=== PATIENT | female | born 1995 | race Caucasian/White ===

== ENCOUNTER 2022-05-01 10:38 | Observation (INO) | payer MEDICAID ==
[~2022-05-01] VITALS: Ht 165.1 cm; Wt 73.5 kg
[2022-05-01] MEDS ORDERED: PNV91TAB8 PO (11:20)
[2022-05-01 12:37] LABS: BASOPHILS % (AUTO) 0.2 % (0.0-2.0); EOSINOPHILS % (AUTO) 0.5 % (0.0-4.0); HEMATOCRIT 35.3 % (36-48); HEMOGLOBIN 12.1 g/dL (12.0-16.0); LYMPHOCYTES # (AUTO) 2.2 K/uL (2.5-16.5); LYMPHOCYTES % (AUTO) 23.3 % (20.5-51.1); MEAN CORPUSCULAR HEMOGLOBIN 30 pg (27-31); MEAN CORPUSCULAR HGB CONC 34 g/dL (33-37); MONOCYTES # (AUTO) 0.6 K/uL (0.8-1.0); MONOCYTES % (AUTO) 6.8 % (1.7-9.3); NEUTROPHILS # (AUTO) 6.5 K/uL (1.8-7.7); NEUTROPHILS % (AUTO) 69.2 % (42.2-75.2); PLATELET COUNT (AUTO) 205 K/uL (140-450); RED BLOOD CELL COUNT(AUTO) 4.01 MIL/uL (4.20-5.40); RED CELL DISTRIBUTION WIDTH 13.4 % (11.6-13.7); WHITE BLOOD COUNT (AUTO) 9.4 K/uL (4.8-10.8)
[2022-05-01 12:58] LABS: ALBUMIN 2.9 g/dL (3.4-5.0); ANION GAP 11.2 (8-16); CARBON DIOXIDE 23.6 mmol/L (21-32); CREATININE 0.5 mg/dL (0.6-1.3); POTASSIUM 3.8 mmol/L (3.5-5.1); TOTAL BILIRUBIN 0.6 mg/dL (0.0-1.0)
[2022-05-01 13:26] LABS: URINE TOTAL PROTEIN 0.1 mg/dL (0-12)
[2022-05-01 13:32] LABS: APPEARANCE,URINE CLEAR (CLEAR); BILIRUBIN,URINE NEGATIVE (NEGATIVE); BLOOD, URINE NEGATIVE (NEGATIVE); COLOR,URINE YELLOW (YELLOW); LEUKOCYTE ESTERASE ,URINE NEGATIVE (NEGATIVE); NITRITE, URINE NEGATIVE (NEGATIVE); PH,URINE 7.5 (5.0-9.0); UGLUCOSE NEGATIVE (NEGATIVE)
[2022-05-01 13:39] LABS: PROTHROMBIN TIME 9.3 secs (10.8-13.4)
--- NOTE | 2022-05-01 16:55 | NUR ---
PATIENT HAS BEEN SCREENED AND CATEGORIZED LOW NUTRITION RISK. PATIENT WILL BE SEEN WITHIN 7 DAYS OF ADMISSION. 05/08/22 REVIEWED BY HUMZA NELSON [address]
== END 2022-05-01 19:00 | disposition home or self-care (01) ==
LOC: MLD 10:38
PROVIDERS: ADMIT Obstetrics & Gynecology; ATTEND Obstetrics & Gynecology
DX: O13.3 Gestational [pregnancy-induced] hypertension without significant proteinuria, third trimester (principal); Z20.822 Contact with and (suspected) exposure to COVID-19; O99.013 Anemia complicating pregnancy, third trimester; D64.9 Anemia, unspecified; Z3A.31 31 weeks gestation of pregnancy
CPT/HCPCS: 36415; 80053; 81003; 82570; 83605; 84550; 85025; 85384; 85610; 85730; 87426; 93005; C8929; G0378

== ENCOUNTER 2022-06-02 11:52 | Inpatient (IN) | payer MEDICAID ==
[~2022-06-02] VITALS: Ht 165.1 cm; Wt 75.3 kg
[~2022-06-02 11:52] MED LIST: PNV91TAB8 PO
[2022-06-02 15:34] VITALS: BP 103/65
[2022-06-02] MEDS ORDERED: OXYTOCIN 10 UNITS/ML VIAL IM SCH (19:20)
[2022-06-02] MEDS ORDERED: METHYLERGONOVINE 0.2 MG/ML AMP IM PRN (19:20)
[2022-06-02] MEDS ORDERED: CARBOPROST 250 MCG/ML AMP IM PRN (19:20)
[2022-06-02] MEDS ORDERED: BETAMETH ACET/BETAMETH NA PH 30 MG/5 ML VIAL IM SCH (19:30)
[2022-06-02 19:53] LABS: BASOPHILS % (AUTO) 0.3 % (0.0-2.0); EOSINOPHILS % (AUTO) 0.3 % (0.0-4.0); HEMATOCRIT 37.3 % (36-48); HEMOGLOBIN 12.6 g/dL (12.0-16.0); LYMPHOCYTES # (AUTO) 3.3 K/uL (2.5-16.5); LYMPHOCYTES % (AUTO) 25.2 % (20.5-51.1); MEAN CORPUSCULAR HEMOGLOBIN 30 pg (27-31); MEAN CORPUSCULAR HGB CONC 34 g/dL (33-37); MEAN CORPUSCULAR VOLUME 87.7 fL (80-94); MONOCYTES % (AUTO) 7.9 % (1.7-9.3); NEUTROPHILS # (AUTO) 8.6 K/uL (1.8-7.7); NEUTROPHILS % (AUTO) 66.3 % (42.2-75.2); PLATELET COUNT (AUTO) 206 K/uL (140-450); RED BLOOD CELL COUNT(AUTO) 4.25 MIL/uL (4.20-5.40); RED CELL DISTRIBUTION WIDTH 13.6 % (11.6-13.7)
[2022-06-02 20:09] LABS: PROTHROMBIN TIME 9.5 secs (10.8-13.4)
[2022-06-02 20:14] LABS: ALBUMIN 3.4 g/dL (3.4-5.0); CARBON DIOXIDE 23.8 mmol/L (21-32); CREATININE 0.6 mg/dL (0.6-1.3); POTASSIUM 3.8 mmol/L (3.5-5.1); TOTAL BILIRUBIN 0.8 mg/dL (0.0-1.0)
[2022-06-02 20:29] LABS: APPEARANCE,URINE CLEAR (CLEAR); BILIRUBIN,URINE NEGATIVE (NEGATIVE); BLOOD, URINE NEGATIVE (NEGATIVE); COLOR,URINE YELLOW (YELLOW); LEUKOCYTE ESTERASE ,URINE NEGATIVE (NEGATIVE); NITRITE, URINE NEGATIVE (NEGATIVE); PH,URINE 6.5 (5.0-9.0); UGLUCOSE NEGATIVE (NEGATIVE)
[2022-06-02] MEDS ORDERED: OXYTOCIN 20 UNITS in LACTATED RINGERS 1,000 ML IV SCH (20:30)
[2022-06-02] MEDS ORDERED: ONDANSETRON 4 MG/2 ML VIAL IVP PRN (20:30)
[2022-06-02] MEDS ORDERED: MORPHINE SULFATE 5 MG/ML VIAL IVP PRN (20:30)
[2022-06-03] MEDS: LACTATED RINGERS 1,000 ML IV SCH ×4 (01:46→20:58)
[2022-06-03] MEDS: MISOPROSTOL 25 MCG TAB VG SCH ×3 (03:35→19:50)
[2022-06-03] MEDS ORDERED: BETAMETH ACET/BETAMETH NA PH 30 MG/5 ML VIAL IM ONE (07:53)
[2022-06-03] MEDS ORDERED: BETAMETH ACET/BETAMETH NA PH 30 MG/5 ML VIAL IM SCH ×2 (07:55→19:50)
--- NOTE | 2022-06-03 09:53 | NUR ---
PATIENT HAS BEEN SCREENED AND CATEGORIZED LOW NUTRITION RISK. PATIENT WILL BE SEEN WITHIN 7 DAYS OF ADMISSION. 06/09/22 REVIEWED BY HUMZA NELSON [address]
[2022-06-04] MEDS: LACTATED RINGERS 1,000 ML IV SCH ×3 (02:27→19:27)
[2022-06-04] MEDS: MISOPROSTOL 25 MCG TAB VG SCH ×3 (08:25→23:40)
[2022-06-04 20:50] VITALS: BP 140/85
[2022-06-05] MEDS: LACTATED RINGERS 1,000 ML IV SCH ×2 (03:20→11:19)
[2022-06-05] MEDS ORDERED: OXYTOCIN 20 UNITS/LR PREMIX 1,000 ML IV ONE (06:56)
[2022-06-05] MEDS ORDERED: AMPICILLIN 2,000 MG in NACL 0.9% 100 ML IV SCH (11:00)
[2022-06-05] MEDS ORDERED: AMPICILLIN 2,000 MG VIAL ONE (11:06)
[2022-06-05] MEDS ORDERED: LIDOCAINE 1% 500 MG/50 ML VIAL ONE (13:34)
[2022-06-05] MEDS ORDERED: LIDOCAINE 1% 500 MG/ 50 ML VIAL INJ SCH (14:00)
[2022-06-05] MEDS ORDERED: AMPICILLIN 1,000 MG in NACL 0.9% 50 ML IV SCH (15:00)
[2022-06-05] MEDS ORDERED: MEASLES, MUMPS, AND RUBELLA 1 VIAL SQVAC ONE (18:40)
[2022-06-05] MEDS ORDERED: OXYTOCIN 10 UNITS/ML VIAL IM PRN (18:40)
[2022-06-05] MEDS ORDERED: METHYLERGONOVINE 0.2 MG/ML AMP IM PRN (18:40)
[2022-06-05] MEDS ORDERED: IBUPROFEN 800 MG TAB PO PRN (18:40)
[2022-06-05] MEDS ORDERED: METHYLERGONOVINE 0.2 MG TAB PO PRN (18:40)
[2022-06-05] MEDS ORDERED: BENZOCAINE/MENTHOL 20%-0.5% 60 GM CAN TP PRN (18:40)
[2022-06-05] MEDS ORDERED: MEASLES, MUMPS, AND RUBELLA 1 VIAL SQVAC PRN (18:50)
[2022-06-06 05:51] LABS: HEMATOCRIT 32.8 % (36-48); HEMOGLOBIN 11.3 g/dL (12.0-16.0)
== END 2022-06-07 21:54 | disposition home or self-care (01) | DRG 560 ==
LOC: MLD 11:52 → OBSVTOIN 19:16 → MFCC 06-05 16:30
PROVIDERS: ADMIT Obstetrics & Gynecology; ATTEND Obstetrics & Gynecology
PROC: 10E0XZZ Delivery of Products of Conception, External Approach (ICD-10-PCS; principal; 2022-06-05)
PROC: 3E0234Z Introduction of Serum, Toxoid and Vaccine into Muscle, Percutaneous Approach (ICD-10-PCS; 2022-06-05)
DX: O36.8130 Decreased fetal movements, third trimester, not applicable or unspecified (principal); Z37.0 Single live birth; O41.03X0 Oligohydramnios, third trimester, not applicable or unspecified; O36.5930 Maternal care for other known or suspected poor fetal growth, third trimester, not applicable or unspecified; O76 Abnormality in fetal heart rate and rhythm complicating labor and delivery; Z20.822 Contact with and (suspected) exposure to COVID-19; Z3A.36 36 weeks gestation of pregnancy
CPT/HCPCS: 36415; 76819; 80053; 81003; 85018; 85025; 85610; 85730; 86592; 86886; 86900; 86901; 87340; 87653-90; J0290; J0702; J2001; J2590; J7120; Q0092